=== PATIENT | female | born 1960 | race Caucasian/White ===

== ENCOUNTER 2018-10-03 21:05 | Emergency (ER) | payer OTHER ==
[~2018-10-03] VITALS: Ht 152.4 cm; Wt 70.3 kg
[2018-10-03] MEDS ORDERED: AUGMENTIN 875-1 EACH PO (21:34)
[2018-10-03] MEDS ORDERED: TETANUS/DIPHTHERIA TOX ADULT 0.5 ML SYR IM ONE (21:45)
[2018-10-03] MEDS ORDERED: BACITRACIN ZINC 0.9GM TP ONE (21:50)
[2018-10-03] MEDS ORDERED: NAPROSYN500 MG PO (22:17)
--- NOTE | 2018-10-03 22:53 | Diagnostic Imaging Report ---
FOREARM 2 VIEW LT -HOPD HISTORY: Pain. Bite by dog left forearm COMPARISON: None available. FINDINGS: Bones: No acute displaced fracture. Osseous alignment is within normal limits. Joints: The joint spaces are well-maintained. Soft tissues: The soft tissues appear unremarkable. IMPRESSION: No acute radiographic osseous abnormality. No radio opaque foreign body. Signed by: Jony Smith DO on 10/03/2018 10:50 PM
== END 2018-10-03 22:45 | disposition home or self-care (01) ==
LOC: FSED 21:05
DX: S51.832A Puncture wound without foreign body of left forearm, initial encounter (principal); W54.0XXA Bitten by dog, initial encounter; Y92.008 Other place in unspecified non-institutional (private) residence as the place of occurrence of the external cause
CPT/HCPCS: 90471; 90714; 99283